=== PATIENT | female | born 1950 | race Caucasian/White ===

== ENCOUNTER 2021-11-10 12:32 | Inpatient (IN) ==
[2021-11-10] MEDS ORDERED: Fluticasone Propionate Nasal 50 MCG/SPRAY BOTTLE NS PRN (17:10)
[2021-11-10] MEDS ORDERED: *HR* Dextrose 50 % in Water (Syg) 50 ML SYRINGE IVP PRN (17:14)
[2021-11-10] MEDS ORDERED: Dextrose 4 GM Chewable Tablets PO PRN ×2 (17:14)
[2021-11-10] MEDS ORDERED: D5% in Water 1,000 ML IVC PRN (17:14)
[2021-11-10] MEDS ORDERED: Ondansetron ODT 4 MG TAB.RAPDIS SL PRN (17:15)
[2021-11-10] MEDS: *HR* HYDROcodone/Acet 5/325 mg TABLET PO PRN (21:11)
[2021-11-10] MEDS: Insulin LISPRO 300 UNITS/3 ML VIAL SUBQ SCH (21:12)
[2021-11-10] MEDS: cloNIDine HCL 0.1 MG TABLET PO SCH (21:12)
[2021-11-11] MEDS: *HR* HYDROcodone/Acet 5/325 mg TABLET PO PRN ×3 (06:06→21:05)
[2021-11-11] MEDS: hydrOXYzine pamoate 25 MG CAPSULE PO PRN ×2 (06:06→21:05)
[2021-11-11] MEDS: *HR* Enoxaparin 40 MG/0.4 ML SYRINGE SQ SCH (06:07)
[2021-11-11 07:22] LABS: Basophils % 0.4 %; Eosinophils # 0.3 K/mcL (0.0-0.6); Eosinophils % 3.4 %; Hematocrit 28.3 % (35.3-44.9); Immature Granulocytes % 0.6 % (0-4); Lymphocytes # 1.8 K/mcL (0.6-4.6); Lymphocytes % 23.9 %; Mean Corpuscular HGB Conc 31.8 g/dL (31.6-35.5); Mean Corpuscular Hemoglobin 28.5 pg (28.0-33.3); Mean Corpuscular Volume 89.6 fL (83.0-100.0); Mean Platelet Volume 9.7 fL (9.4-12.4); Monocytes # 0.7 K/mcL (0.0-1.3); Monocytes % 9.4 %; Neutrophils # 4.8 K/mcL (1.6-8.9); Platelet Count 408 K/mcL (140-400); Red Blood Count 3.16 M/mcL (3.82-4.97); Red Cell Distribution Width 12.8 % (11.5-14.5); Segmented Neutrophils % 62.3 %; White Blood Count 7.7 K/mcL (4.3-11.1)
[2021-11-11 07:40] LABS: BUN/Creatinine Ratio 21 (6-26); Blood Urea Nitrogen 13 mg/dL (8-23); Carbon Dioxide 27 mEq/L (23-29); Chloride 98 mEq/L (98-107); Glucose 121 mg/dL (70-105); Osmolality,Calculated 279 (280-300); Potassium 4.1 mEq/L (3.5-5.1); Sodium 134 mEq/L (136-145); eGFR For African Americans > 60 (> 60); eGFR For Non-African Americans > 60 (> 60)
[2021-11-11] MEDS: Insulin LISPRO 300 UNITS/3 ML VIAL SUBQ SCH ×4 (07:52→21:09)
[2021-11-11] MEDS ORDERED: Furosemide 20 MG TABLET PO SCH (09:00)
[2021-11-11] MEDS: *HR* Metformin 500 MG TABLET PO SCH ×2 (09:29→17:56)
[2021-11-11] MEDS: cloNIDine HCL 0.1 MG TABLET PO SCH ×2 (09:29→21:06)
[2021-11-11] MEDS: Fluconazole 100 MG TABLET PO SCH (09:29)
[2021-11-11] MEDS: Nystatin SUSP 5 ML UD.LIQ PO SCH ×4 (09:29→21:14)
[2021-11-11] MEDS: *HR* LORazepam 1 MG TABLET PO PRN (09:29)
[2021-11-11] MEDS: amLODIPine 5 MG TABLET PO SCH (09:30)
[2021-11-11] MEDS: Artificial Tears SOLN 15 ML BOTTLE BOTH EYES SCH (21:06)
[2021-11-12] MEDS: *HR* Enoxaparin 40 MG/0.4 ML SYRINGE SQ SCH (06:36)
[2021-11-12] MEDS: amLODIPine 5 MG TABLET PO SCH (09:04)
[2021-11-12] MEDS: *HR* Metformin 500 MG TABLET PO SCH ×2 (09:04→17:07)
[2021-11-12] MEDS: Fluconazole 100 MG TABLET PO SCH (09:04)
[2021-11-12] MEDS: cloNIDine HCL 0.1 MG TABLET PO SCH ×2 (09:04→21:06)
[2021-11-12] MEDS: *HR* HYDROcodone/Acet 5/325 mg TABLET PO PRN ×2 (09:05→21:07)
[2021-11-12] MEDS: Loratadine 10 MG TABLET PO SCH (09:05)
[2021-11-12] MEDS: Nystatin SUSP 5 ML UD.LIQ PO SCH ×4 (09:05→21:08)
[2021-11-12] MEDS: *HR* LORazepam 1 MG TABLET PO PRN ×2 (09:05→22:20)
[2021-11-12] MEDS: Artificial Tears SOLN 15 ML BOTTLE BOTH EYES SCH ×2 (09:05→21:11)
[2021-11-12] MEDS: Insulin LISPRO 300 UNITS/3 ML VIAL SUBQ SCH ×4 (09:06→21:28)
[2021-11-13] MEDS: *HR* Enoxaparin 40 MG/0.4 ML SYRINGE SQ SCH (05:59)
[2021-11-13] MEDS: Insulin LISPRO 300 UNITS/3 ML VIAL SUBQ SCH ×4 (08:04→21:17)
[2021-11-13] MEDS: amLODIPine 5 MG TABLET PO SCH (08:09)
[2021-11-13] MEDS: Acetaminophen 325 MG TABLET PO PRN ×2 (08:09→17:01)
[2021-11-13] MEDS: Fluconazole 100 MG TABLET PO SCH (08:10)
[2021-11-13] MEDS: cloNIDine HCL 0.1 MG TABLET PO SCH ×2 (08:10→21:17)
[2021-11-13] MEDS: *HR* Metformin 500 MG TABLET PO SCH ×2 (08:10→16:57)
[2021-11-13] MEDS: Loratadine 10 MG TABLET PO SCH (08:10)
[2021-11-13] MEDS: Artificial Tears SOLN 15 ML BOTTLE BOTH EYES SCH ×2 (08:11→21:25)
[2021-11-13] MEDS: Nystatin SUSP 5 ML UD.LIQ PO SCH ×4 (09:55→21:18)
[2021-11-13] MEDS: *HR* HYDROcodone/Acet 5/325 mg TABLET PO PRN ×2 (14:29→21:22)
[2021-11-13] MEDS: *HR* LORazepam 1 MG TABLET PO PRN (21:22)
[2021-11-14] MEDS: *HR* Enoxaparin 40 MG/0.4 ML SYRINGE SQ SCH (05:26)
[2021-11-14 07:51] LABS: BUN/Creatinine Ratio 19 (6-26); Blood Urea Nitrogen 12 mg/dL (8-23); Carbon Dioxide 30 mEq/L (23-29); Chloride 100 mEq/L (98-107); Glucose 101 mg/dL (70-105); Osmolality,Calculated 282 (280-300); Potassium 4.2 mEq/L (3.5-5.1); Sodium 136 mEq/L (136-145); eGFR For African Americans > 60 (> 60); eGFR For Non-African Americans > 60 (> 60)
[2021-11-14] MEDS: Insulin LISPRO 300 UNITS/3 ML VIAL SUBQ SCH ×4 (10:42→21:07)
[2021-11-14] MEDS: cloNIDine HCL 0.1 MG TABLET PO SCH ×2 (10:59→21:07)
[2021-11-14] MEDS: Nystatin SUSP 5 ML UD.LIQ PO SCH ×4 (11:00→21:07)
[2021-11-14] MEDS: amLODIPine 5 MG TABLET PO SCH (11:00)
[2021-11-14] MEDS: Fluconazole 100 MG TABLET PO SCH (11:00)
[2021-11-14] MEDS: Loratadine 10 MG TABLET PO SCH (11:00)
[2021-11-14] MEDS: Artificial Tears SOLN 15 ML BOTTLE BOTH EYES SCH ×2 (11:01→21:08)
[2021-11-14] MEDS: *HR* Metformin 500 MG TABLET PO SCH ×2 (11:01→17:04)
[2021-11-14] MEDS: *HR* HYDROcodone/Acet 5/325 mg TABLET PO PRN ×2 (14:59→21:05)
[2021-11-14] MEDS: Acetaminophen 325 MG TABLET PO PRN (17:03)
[2021-11-14 18:55] VITALS: O2SAT 97
[2021-11-14] MEDS: *HR* LORazepam 1 MG TABLET PO PRN (21:07)
[2021-11-15] MEDS: *HR* Enoxaparin 40 MG/0.4 ML SYRINGE SQ SCH (05:28)
[2021-11-15 08:09] VITALS: BP 151/73; PULSE 107; RESP 20; TEMP 97.7
[2021-11-15] MEDS: Insulin LISPRO 300 UNITS/3 ML VIAL SUBQ SCH ×2 (09:14→12:23)
[2021-11-15] MEDS: Nystatin SUSP 5 ML UD.LIQ PO SCH ×2 (09:32→12:24)
[2021-11-15] MEDS: amLODIPine 5 MG TABLET PO SCH (09:33)
[2021-11-15] MEDS: Fluconazole 100 MG TABLET PO SCH (09:33)
[2021-11-15] MEDS: *HR* Metformin 500 MG TABLET PO SCH (09:33)
[2021-11-15] MEDS: cloNIDine HCL 0.1 MG TABLET PO SCH (09:33)
[2021-11-15] MEDS: *HR* LORazepam 1 MG TABLET PO PRN (09:33)
[2021-11-15] MEDS: Loratadine 10 MG TABLET PO SCH (09:33)
[2021-11-15] MEDS: hydrOXYzine pamoate 25 MG CAPSULE PO PRN (09:33)
[2021-11-15] MEDS: *HR* HYDROcodone/Acet 5/325 mg TABLET PO PRN (09:33)
[2021-11-15] MEDS: Artificial Tears SOLN 15 ML BOTTLE BOTH EYES SCH (09:34)
== END 2021-11-15 14:41 | disposition home health service (06) | DRG 641 ==
LOC: INPPIK 18:14
PROVIDERS: ADMIT Internal Medicine; ATTEND Internal Medicine